=== PATIENT | male | born 1980 | race Caucasian/White ===

== ENCOUNTER 2018-11-12 09:11 | Inpatient (IN) | payer MEDICAID ==
[2018-11-12] MEDS: KETOROLAC 30 MG INJ IV (09:43)
[2018-11-12] MEDS: ONDANSETRON 4 MG INJ IV (09:43)
[2018-11-12] MEDS: SOD CHLORIDE 0.9% 1,000 ML IV ×3 (09:43→23:30)
[2018-11-12 10:00] LABS: ADD MAN DIFF? NO
[2018-11-12 10:02] LABS: WHITE BLOOD COUNT 13.8 10^3/ul (4.8-10.8)
[2018-11-12 10:02] LABS: BASOPHIL # 0.1 10^3/ul (0.0-0.1); BASOPHILS % 0.6 % (0.0-2.0); EOSINOPHILS # 0.1 10^3/ul (0.0-0.5); EOSINOPHILS % 0.4 % (0.0-7.0); HEMATOCRIT 44.8 % (42.0-52.0); HEMOGLOBIN 15.2 g/dl (14.0-18.0); LYMPHOCYTES # 1.8 10^3/ul (0.8-2.9); LYMPHOCYTES % 13.3 % (15.0-51.0); MEAN CORPUSCULAR HEMOGLOBIN 31.7 pg (29.0-33.0); MEAN CORPUSCULAR HGB CONC 33.9 g/dl (32.0-37.0); MEAN CORPUSCULAR VOLUME 93.5 fl (82.0-101.0); MEAN PLATELET VOLUME 9.1 fl (7.4-10.4); MONOCYTE # 0.9 10^3/ul (0.3-0.9); MONOCYTES % 6.3 % (0.0-11.0); NEUTROPHIL # 10.9 10^3/ul (1.6-7.5); NEUTROPHILS % 78.9 % (39.0-77.0); PLATELET COUNT 313 10^3/UL (140-415); RED BLOOD COUNT 4.79 10^6/ul (4.70-6.10); RED CELL DISTRIBUTION WIDTH 11.9 % (11.5-14.5)
[2018-11-12 10:06] LABS: ADD UMIC YES; UR ASCORBIC ACID NEGATIVE (NEGATIVE); UR BILIRUBIN (Dip) NEGATIVE (NEGATIVE); UR BLOOD (Dip) NEGATIVE (NEGATIVE); UR CLARITY CLEAR (CLEAR); UR COLOR YELLOW (YELLOW); UR GLUCOSE (Dip) NEGATIVE (NEGATIVE); UR KETONES (Dip) NEGATIVE (NEGATIVE); UR LEUKOCYTE ESTERASE (Dip) 1+ Leu/ul (NEGATIVE); UR NITRITE (Dip) NEGATIVE (NEGATIVE); UR RBC 1 /HPF (0-5); UR SPECIFIC GRAVITY (Dip) 1.015 (1.003-1.030); UR TOTAL PROTEIN (Dip) NEGATIVE (NEGATIVE); UR UROBILINOGEN (Dip) NEGATIVE (NEGATIVE); UR WBC 1 /HPF (0-5)
[2018-11-12 10:37] LABS: ALANINE AMINOTRANSFERASE 28 IU/L (13-69); ALBUMIN 4.9 g/dl (3.3-4.9); ALBUMIN/GLOBULIN RATIO 1.22; ALKALINE PHOSPHATASE 102 IU/L (42-121); ANION GAP 14 (5-13); ASPARTATE AMINO TRANSFERASE 38 IU/L (15-46); BILIRUBIN,INDIRECT 0.2 mg/dl (0-1.1); BILIRUBIN,TOTAL 0.2 mg/dl (0.2-1.3); BLOOD UREA NITROGEN 9 mg/dl (7-20); CALCIUM 9.9 mg/dl (8.4-10.2); CARBON DIOXIDE 27 mmol/L (21-31); CHLORIDE 98 mmol/L (97-110); CREATININE 0.63 mg/dl (0.61-1.24); Estimated GFR > 60 mL/min (>60); GLUCOSE 128 mg/dl (70-220); LIPASE 283 U/L (23-300); POTASSIUM 3.9 mmol/L (3.5-5.1); SODIUM 139 mmol/L (135-144); TOTAL PROTEIN 8.9 g/dl (6.1-8.1)
[2018-11-12] MEDS: SOD CHLORIDE 0.9% 100 ML (12:30)
[2018-11-12] MEDS: IOHEXOL 300MG/ML 150 ML BTL (12:30)
[2018-11-12] MEDS: morphine 4 MG/ML VIAL IV (12:58)
[2018-11-12] MEDS: PIPER-TAZO 3.375 GM IV (PMX) 100 ML IVPB (13:53)
[2018-11-12] MEDS ORDERED: MAGNESIUM HYDROXIDE 30ML CUP PO (14:00)
[2018-11-12] MEDS ORDERED: DOCUSATE SODIUM 100 MG CAP PO (14:00)
[2018-11-12] MEDS ORDERED: LORAZEPAM 2 MG INJ IV (14:00)
[2018-11-12] MEDS ORDERED: NACL 0.9% 3 ML SYG IV (14:00)
[2018-11-12] MEDS ORDERED: ALBUTEROL/IPRATROPIUM (NEB) 3 ML AMP HHN (14:00)
[2018-11-12] MEDS ORDERED: ONDANSETRON 4 MG INJ IV (14:00)
[2018-11-12] MEDS ORDERED: hydrALAzine 20 MG INJ IV (14:00)
[2018-11-12] MEDS ORDERED: NITROGLYCERIN (SL) 0.4 MG TAB SL (14:00)
[2018-11-12] MEDS ORDERED: morphine 2 MG INJ IV (14:00)
[2018-11-12] MEDS ORDERED: ACETAMINOPHEN 325 MG TAB PO (14:00)
[2018-11-12 14:02] LABS: INR 0.93; PROTIME 12.6 Sec (11.9-14.9)
[2018-11-12 14:04] LABS: PARTIAL THROMBOPLASTIN TIME 33.7 Sec (23.0-35.0)
[2018-11-12 14:24] LABS: FREE T4 (FREE THYROXINE) 1.05 ng/dl (0.79-2.35)
[2018-11-12] MEDS: morphine SULFATE/PF (2 MG/2 ML) SYG IV ×2 (14:51→21:13)
[2018-11-12] MEDS: PANTOPRAZOLE (EC) 40 MG TAB PO (15:53)
[2018-11-13] MEDS: SOD CHLORIDE 0.9% 1,000 ML IV ×2 (00:57→09:52)
[2018-11-13] MEDS: morphine SULFATE/PF (2 MG/2 ML) SYG IV ×2 (01:09→05:34)
[2018-11-13 05:03] LABS: ADD MAN DIFF? NO
[2018-11-13 05:12] LABS: BASOPHIL # 0.1 10^3/ul (0.0-0.1); BASOPHILS % 0.7 % (0.0-2.0); EOSINOPHILS # 0.1 10^3/ul (0.0-0.5); EOSINOPHILS % 1.4 % (0.0-7.0); HEMATOCRIT 40.7 % (42.0-52.0); HEMOGLOBIN 14.1 g/dl (14.0-18.0); LYMPHOCYTES # 1.1 10^3/ul (0.8-2.9); LYMPHOCYTES % 12.7 % (15.0-51.0); MEAN CORPUSCULAR HEMOGLOBIN 32.3 pg (29.0-33.0); MEAN CORPUSCULAR HGB CONC 34.6 g/dl (32.0-37.0); MEAN CORPUSCULAR VOLUME 93.3 fl (82.0-101.0); MEAN PLATELET VOLUME 9.2 fl (7.4-10.4); MONOCYTE # 0.8 10^3/ul (0.3-0.9); MONOCYTES % 9.1 % (0.0-11.0); NEUTROPHIL # 6.8 10^3/ul (1.6-7.5); NEUTROPHILS % 75.7 % (39.0-77.0); PLATELET COUNT 301 10^3/UL (140-415); RED BLOOD COUNT 4.36 10^6/ul (4.70-6.10)
[2018-11-13 05:31] LABS: ANION GAP 9 (5-13); BLOOD UREA NITROGEN 9 mg/dl (7-20); CARBON DIOXIDE 29 mmol/L (21-31); CHLORIDE 99 mmol/L (97-110); CHOL/HDL RATIO 4.6 RATIO; CHOLESTEROL 224 mg/dl (100-200); CREATININE 0.71 mg/dl (0.61-1.24); Estimated GFR > 60 mL/min (>60); GLUCOSE 103 mg/dl (70-220); HDL CHOLESTEROL 48 mg/dl (28-63); LDL CHOLESTEROL,CALCULATED 142 mg/dl; MAGNESIUM 2.1 mg/dl (1.7-2.5); PHOSPHORUS 4.1 mg/dl (2.5-4.9); POTASSIUM 3.9 mmol/L (3.5-5.1); SODIUM 137 mmol/L (135-144); TRIGLYCERIDES 172 mg/dl (0-149)
[2018-11-13 05:34] LABS: HEMOGLOBIN A1C 5.8 % (0-5.9)
[2018-11-13] MEDS: DEXTROSE 5%-0.45% NACL 1,000 ML IV (21:51)
[2018-11-13] MEDS: LORAZEPAM 4 MG/ML VIAL IV (22:08)
[2018-11-14] MEDS: morphine SULFATE/PF (2 MG/2 ML) SYG IV (00:58)
[2018-11-14 05:01] LABS: ADD MAN DIFF? NO
[2018-11-14 05:10] LABS: BASOPHIL # 0.1 10^3/ul (0.0-0.1); BASOPHILS % 0.6 % (0.0-2.0); EOSINOPHILS # 0.2 10^3/ul (0.0-0.5); EOSINOPHILS % 1.7 % (0.0-7.0); HEMATOCRIT 42.3 % (42.0-52.0); HEMOGLOBIN 14.7 g/dl (14.0-18.0); LYMPHOCYTES # 1.6 10^3/ul (0.8-2.9); MEAN CORPUSCULAR HEMOGLOBIN 32.1 pg (29.0-33.0); MEAN CORPUSCULAR HGB CONC 34.8 g/dl (32.0-37.0); MEAN CORPUSCULAR VOLUME 92.4 fl (82.0-101.0); MEAN PLATELET VOLUME 9.3 fl (7.4-10.4); MONOCYTES % 9.4 % (0.0-11.0); NEUTROPHIL # 7.9 10^3/ul (1.6-7.5); NEUTROPHILS % 72.9 % (39.0-77.0); PLATELET COUNT 292 10^3/UL (140-415); RED BLOOD COUNT 4.58 10^6/ul (4.70-6.10)
[2018-11-14 05:10] LABS: WHITE BLOOD COUNT 10.9 10^3/ul (4.8-10.8)
[2018-11-14 05:29] LABS: ANION GAP 8 (5-13); BLOOD UREA NITROGEN 11 mg/dl (7-20); CALCIUM 9.5 mg/dl (8.4-10.2); CARBON DIOXIDE 29 mmol/L (21-31); CHLORIDE 101 mmol/L (97-110); CREATININE 0.74 mg/dl (0.61-1.24); Estimated GFR > 60 mL/min (>60); GLUCOSE 117 mg/dl (70-220); POTASSIUM 4.2 mmol/L (3.5-5.1); SODIUM 138 mmol/L (135-144)
[2018-11-14] MEDS ORDERED: CEFAZOLIN 1 GM INJ (07:00)
[2018-11-14] MEDS ORDERED: SEVOFLURANE 15 MIN (07:00)
[2018-11-14] MEDS ORDERED: PROPOFOL 20 ML (09:49)
[2018-11-14] MEDS ORDERED: MIDAZOLAM 1 MG/ML 2 ML INJ (09:49)
[2018-11-14] MEDS ORDERED: ROCURONIUM 50 MG INJ (09:49)
[2018-11-14] MEDS ORDERED: ROPIVACAINE 0.5 % 30 ML VIAL (09:49)
[2018-11-14] MEDS ORDERED: FENTAnyl 50 MCG/ML VIAL IV ×3 (10:30)
[2018-11-14] MEDS ORDERED: OXYCODONE/ACETAMINOPHEN (5/325) TAB PO (10:30)
[2018-11-14] MEDS ORDERED: DIPHENHYDRAMINE 50 MG INJ IV (10:30)
[2018-11-14] MEDS ORDERED: HYDROmorphONE 1 MG/5 ML IV SYRINGE IV ×3 (10:30)
[2018-11-14] MEDS ORDERED: METOCLOPRAMIDE 10 MG INJ IV (10:30)
[2018-11-14] MEDS ORDERED: hydrALAzine 20 MG INJ IV (10:30)
[2018-11-14] MEDS ORDERED: EPHEDrine SULFATE 50 MG/5 ML SYG IV (10:30)
[2018-11-14] MEDS ORDERED: LABETALOL HCL 20MG INJ IV (10:30)
[2018-11-14] MEDS ORDERED: ONDANSETRON 4 MG INJ (10:41)
[2018-11-14] MEDS ORDERED: DEXAMETHASONE 4 MG/ML 5 ML INJ (10:41)
[2018-11-14] MEDS ORDERED: METOCLOPRAMIDE 10 MG INJ (10:41)
[2018-11-14] MEDS ORDERED: KETOROLAC 30 MG INJ (10:42)
[2018-11-14] MEDS: BUPIVACAINE 0.5%/EPI (SDV) 30 ML INJ (10:54)
[2018-11-14] MEDS ORDERED: NEOSTIGMINE 3 MG/3 ML SYRINGE (11:24)
[2018-11-14] MEDS ORDERED: GLYCOPYRROLATE 1 MG INJ (11:24)
[2018-11-14] MEDS ORDERED: SUGAMMADEX SODIUM 200 MG/2 ML VIAL IV (11:58)
[2018-11-14] MEDS: D5W-0.45 NACL + KCL 20 MEQ 1,000 ML IV (12:09)
[2018-11-14] MEDS: MEPERIDINE 25 MG INJ IV (12:26)
[2018-11-14] MEDS: ONDANSETRON 4 MG INJ IV (12:26)
[2018-11-14] MEDS ORDERED: ONDANSETRON 4 MG INJ IV (12:30)
[2018-11-14] MEDS ORDERED: IBUPROFEN 600 MG TAB PO (12:30)
[2018-11-14] MEDS ORDERED: DIPHENHYDRAMINE 25 MG CAP PO (12:30)
[2018-11-14] MEDS: HYDROmorphONE 0.5 MG/0.5 ML SYG IV (15:07)
[2018-11-14] MEDS: HYDROCODONE/APAP (5/325) TAB PO (17:17)
[2018-11-15] MEDS: HYDROmorphONE 0.5 MG/0.5 ML SYG IV ×2 (00:51→04:58)
[2018-11-15] MEDS: D5W-0.45 NACL + KCL 20 MEQ 1,000 ML IV ×3 (03:25→17:52)
[2018-11-15 05:32] LABS: ADD MAN DIFF? NO
[2018-11-15 05:44] LABS: BASOPHILS % 0.1 % (0.0-2.0); EOSINOPHILS % 0.1 % (0.0-7.0); HEMATOCRIT 37.8 % (42.0-52.0); HEMOGLOBIN 13.2 g/dl (14.0-18.0); LYMPHOCYTES # 1.5 10^3/ul (0.8-2.9); LYMPHOCYTES % 9.7 % (15.0-51.0); MEAN CORPUSCULAR HEMOGLOBIN 32.4 pg (29.0-33.0); MEAN CORPUSCULAR HGB CONC 34.9 g/dl (32.0-37.0); MEAN CORPUSCULAR VOLUME 92.9 fl (82.0-101.0); MEAN PLATELET VOLUME 9.4 fl (7.4-10.4); MONOCYTE # 1.4 10^3/ul (0.3-0.9); MONOCYTES % 9.2 % (0.0-11.0); NEUTROPHIL # 12.4 10^3/ul (1.6-7.5); NEUTROPHILS % 80.4 % (39.0-77.0); PLATELET COUNT 314 10^3/UL (140-415); RED BLOOD COUNT 4.07 10^6/ul (4.70-6.10); RED CELL DISTRIBUTION WIDTH 11.9 % (11.5-14.5)
[2018-11-15 05:44] LABS: WHITE BLOOD COUNT 15.4 10^3/ul (4.8-10.8)
[2018-11-15 06:22] LABS: ANION GAP 8 (5-13); BLOOD UREA NITROGEN 11 mg/dl (7-20); CALCIUM 9.3 mg/dl (8.4-10.2); CARBON DIOXIDE 28 mmol/L (21-31); CHLORIDE 101 mmol/L (97-110); CREATININE 0.71 mg/dl (0.61-1.24); Estimated GFR > 60 mL/min (>60); GLUCOSE 125 mg/dl (70-220); POTASSIUM 4.3 mmol/L (3.5-5.1); SODIUM 137 mmol/L (135-144)
[2018-11-15] MEDS: ENOXAPARIN 40 MG/0.4 ML SYG SC (06:30)
[2018-11-15] MEDS: ACETAMINOPHEN 325 MG TAB PO (10:55)
[2018-11-15] MEDS: HYDROCODONE/APAP (5/325) TAB PO (15:39)
== END 2018-11-15 19:05 | disposition home or self-care (01) | DRG 418 ==
LOC: FTE 09:11 → MS1 13:04
PROVIDERS: Hospitalist
PROC: 0FT44ZZ Resection of Gallbladder, Percutaneous Endoscopic Approach (ICD-10-PCS; principal; 2018-11-14 09:51)
DX: K80.00 Calculus of gallbladder with acute cholecystitis without obstruction (principal); K56.609 Unspecified intestinal obstruction, unspecified as to partial versus complete obstruction
CPT/HCPCS: 36415; 74177; 76705; 78226; 80048; 80053; 80061; 81001; 83036; 83690; 83735; 84100; 84439; 84443; 85025; 85610; 85730; 88304; 96361; 96374; 96375; 99285-25